=== PATIENT | female | born 1980 | race American Indian/Alaskan Native ===

== ENCOUNTER 2021-10-29 12:37 | Emergency (ER) | payer OTHER ==
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
[2021-10-29 13:41] VITALS: BP 148/91
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
== END 2021-10-29 15:24 | disposition home or self-care (01) ==
LOC: ED 12:37
DX: S39.012A Strain of muscle, fascia and tendon of lower back, initial encounter (principal); V89.2XXA Person injured in unspecified motor-vehicle accident, traffic, initial encounter; Y93.89 Activity, other specified; Y92.89 Other specified places as the place of occurrence of the external cause; Y99.8 Other external cause status
CPT/HCPCS: 72040; 99283